=== PATIENT | female | born 1980 | race Caucasian/White ===

== ENCOUNTER 2016-10-05 08:09 | Inpatient (IN) | payer OTHER ==
[2016-10-05] VITALS (77 sets, daily range): BP systolic 79–128; BP diastolic 47–93; PULSE 57–107; RESP 16–18; TEMP 97.7–98.2; O2SAT 100
[~2016-10-05 08:09] MED LIST: IBUP600 PO; PERC5TAB12 PO; PRENTAB72 PO
[2016-10-05 10:34] LABS: AUTOMATED NEUTROPHIL # 6.9 TH/MM3 (1.8-7.7); BASOPHIL % 0.3 % (0.0-2.0); EOSINOPHIL # 0.1 TH/MM3 (0-0.4); EOSINOPHIL % 1.1 % (0.0-4.0); HEMATOCRIT 35.7 % (35.0-46.0); HEMO FLAGS DIFF FINAL; LYMPH % 14.5 % (9.0-44.0); LYMPHOCYTE # 1.3 TH/MM3 (1.0-4.8); MEAN CELL VOLUME 83.6 FL (80.0-100.0); MEAN CORPUSCULAR HGB CONC 35.9 % (32.0-36.0); MONO % 8.8 % (0.0-8.0); NEUT % 75.3 % (16.0-70.0); PLATELET COUNT 240 TH/MM3 (150-450); RED BLOOD COUNT 4.27 MIL/MM3 (4.00-5.30); RED CELL DISTRIBUTION WIDTH 14.7 % (11.6-17.2); WHITE BLOOD COUNT 9.2 TH/MM3 (4.0-11.0)
[2016-10-05] MEDS ORDERED: OXYTOCIN 30 UNITS/NS 500ML PREMIX IV SCH (10:45)
[2016-10-05] MEDS ORDERED: LACTATED RINGER'S 1000 ML INJ 1,000 ML IV PRN (10:57)
[2016-10-05] MEDS ORDERED: LACTATED RINGER'S 1000 ML INJ 1,000 ML IV SCH (10:57)
[2016-10-05] MEDS ORDERED: SODIUM CHLORID 0.9% 500 ML INJ 500 ML IV PRN (11:00)
[2016-10-05] MEDS ORDERED: LIDOCAINE HCL 1% 50 ML VIAL INFIL PRN (11:00)
[2016-10-05] MEDS ORDERED: ONDANSETRON HCL 4 MG/2 ML VIAL IV PRN (11:00)
[2016-10-05] MEDS ORDERED: CITRIC ACID-SODIUM CITRATE LIQ 30 ML UDC PO SCH (11:00)
[2016-10-05] MEDS ORDERED: MINERAL OIL 10 ML VIAL TOPICAL PRN (11:00)
[2016-10-05] MEDS ORDERED: LIDOCAINE HCL 1% 50 ML VIAL I-DERMAL PRN (11:00)
[2016-10-05] MEDS ORDERED: OXYTOCIN 30 UNITS-500ML PREMIX 500 ML IV ONE ×2 (11:00→20:00)
--- NOTE | 2016-10-05 11:05 | PD.LABORPN ---
Subjective Subjective pt comfortable Objective Objective Pelvic Exam: Cervix: [-] 3 Dilatation: [-] Effacement: [-] 70 Station: [-] -2 Presentation: [-] vtx Membranes: [intact or ruptured] AROM clear Uterine Contractions: [-] FHT's: Category: [-] 1 Baseline: [-] 140s Reactive: [-] + Variability: [-] Decels: [-] Assessment/Plan Problem List: (1) Plan: start pit epidural Emery Aquino MD Oct 05, 2016 11:05
[2016-10-05] MEDS ORDERED: SODIUM CHLOR 0.9% 1000 ML INJ 1,000 ML IV PRN (11:17)
--- NOTE | 2016-10-05 11:50 | MH ---
cc: EMERY DA SILVA DATE OF ADMISSION: 10/05/2016 DATE OF : 1980 HISTORY OF PRESENT ILLNESS The patient is a 36-year-old 2, para 1-0-0-1, who presents at 40 and 2/7 weeks for elective induction of labor. PAST MEDICAL HISTORY The patient's past medical history is negative. PAST SURGICAL HISTORY The patient has had wisdom teeth extraction. OBSTETRICAL HISTORY She has had one prior with vaginal delivery and that was complicated by preeclampsia. GYNECOLOGIC HISTORY No history of STDs. She did have an abnormal Pap smear in 2016 that was ASCUS. Her follow up Pap smear was negative. FAMILY HISTORY Family history is noncontributory. SOCIAL HISTORY Social history is negative for cigarettes, alcohol and street drugs. The patient is and works at [employer]. PHYSICAL EXAMINATION VITAL SIGNS: She is afebrile. Her weight is 128. Her blood pressure is 98/60. Her pulse is 82. GENERAL: In general she is in no acute distress. HEART: Regular rate and rhythm. LUNGS: Clear to auscultation bilaterally. ABDOMEN: Gravid, nontender. LOWER EXTREMITIES: Nontender, non edematous. CERVICAL: On cervical exam she is 3/70/-2. AROM was attempted with scant fluid returned. Emery Da Silva MD TEG/TLL /11:26 AM /11:39 AM MTDReed
[2016-10-05 12:03] LABS: BLOOD, URINE SMALL (NEG); COMMENT (UR) CULT NOT INDICATED; CULTURE IF INDICATED CULT NOT INDICATED; GLUCOSE,URINE NEG (NEG); KETONE, URINE NEG (NEG); NITRITE,URINE NEG (NEG); PH, URINE 7.5 (5.0-8.5); SQUAMOUS EPITHELIAL CELL URINE <1 /hpf (0-5); URINE COLOR LIGHT-YELLOW (YELLW/STRAW)
[2016-10-05] MEDS ORDERED: DIPHTH/TETANUS/ACEL PERTUSSIS (BOOSTER) 0.5 ML VIAL/PFS IM ONE (16:00)
[2016-10-05] MEDS ORDERED: MEASLES, MUMPS, RUBELLA VACCINE 0.5 ML VIAL SQ ONE (16:00)
[2016-10-05] MEDS ORDERED: WITCH HAZEL 50%/GLYCERIN 12.5% 40 PAD JAR TOPICAL PRN (20:00)
[2016-10-05] MEDS ORDERED: OXYTOCIN 10 UNIT/ML AMP XX PRN (20:00)
[2016-10-05] MEDS ORDERED: ACETAMINOPHEN 325 MG TAB PO PRN (20:00)
[2016-10-05] MEDS ORDERED: oxyCODONE/ACETAMINOPHEN 5 MG/325 MG TAB PO PRN ×2 (20:00)
[2016-10-05] MEDS ORDERED: SODIUM CHLORIDE 0.9% FLUSH 10 ML FLUSH IV FLUSH PRN (20:00)
[2016-10-05] MEDS ORDERED: DOCUSATE SODIUM 50 MG/SENNA 8.6 MG TAB PO PRN (20:00)
[2016-10-05] MEDS ORDERED: ONDANSETRON ODT 4 MG TAB PO PRN (20:00)
[2016-10-05] MEDS ORDERED: BENZOCAINE 20% TOPICAL SPRAY 60 ML CAN TOPICAL PRN (20:00)
[2016-10-05] MEDS ORDERED: ALUMINUM/MAGNESIUM/SIMETH 30 ML CUP PO PRN (20:00)
--- NOTE | 2016-10-05 20:05 | PD.OB.DELI ---
Delivery Date: Oct 05, 2016 Anesthesia: Epidural Episiotomy: None Vaginal Delivery: Normal Presentation: Occiput anterior Nuchal Cord: x1 Delayed cord clamping (45 sec): Yes Infant: Male, Single One Minute : 9 Five Minute : 9 Weight: 7-9 Infant Care: Suctioned, Spontaneous crying, Responded to stimulation Placenta: Spontaneous delivery, Intact, 3 vessel cord Laceration: No lacerations Emery Wynne MD Oct 05, 2016 20:05
[2016-10-05] MEDS: IBUPROFEN 600 MG TAB PO PRN (20:25)
[2016-10-05] MEDS ORDERED: ZOLPIDEM TARTRATE 5 MG TAB PO PRN (21:00)
[2016-10-05] MEDS ORDERED: SODIUM CHLORIDE 0.9% FLUSH 10 ML FLUSH IV FLUSH SCH (21:00)
[2016-10-06] MEDS: IBUPROFEN 600 MG TAB PO PRN ×2 (07:17→14:11)
[2016-10-06 07:20] VITALS: BP 118/74; PULSE 60; RESP 16; TEMP 97.9
[2016-10-06] MEDS ORDERED: IBUP-232 PO (08:42)
[2016-10-06] MEDS ORDERED: OXYC1TAB63 PO (08:42)
--- NOTE | 2016-10-06 08:43 | HHI.DCPOC ---
Discharge Care Plan Diagnosis: (1) Spontaneous vaginal delivery Your Health Problems Are: Vaginal delivery Report Symptoms to Your Doctor -Temperate above 100.5 degrees -Redness, of incision or excessive or foul smelling drainage -Unusual pain or calf pain -Increased vaginal bleeding -Painful or difficulty urinating -Feelings of extreme sadness or anxiety after 2 weeks Goals to Promote Your Health * To prevent worsening of your condition and complications * To maintain your health at the optimal level Directions to Meet Your Goals Take your medications as prescribed Follow your dietary instruction Follow activity as directed Ensure plenty of rest for recovery Drink fluids for hydration Keep your appointments as scheduled Take your immunizations and boosters as scheduled If your symptoms worsen call your PCP, if no PCP go to Urgent Care Center or Emergency Room Smoking is Dangerous to Your Health. Avoid second hand smoke Call the 24-hour crisis hotline for domestic abuse at Emery Wynne MD Oct 06, 2016 08:43
--- NOTE | 2016-10-06 08:46 | HHI.OB ---
Subjective Post Day: 1 Remarks pain controlled, mod lochia, adeel po, +void/flatus, pt wants to go home today if baby can go home. Objective Vitals/I&O Vital Signs Date Time Temp Pulse Resp B/P Pulse Ox O2 Delivery O2 Flow Rate FiO2 10/06/16 07:20 60 118/74 10/06/16 07:20 97.9 16 10/05/16 22:00 97.9 10/05/16 22:00 63 18 107/70 10/05/16 21:20 98.2 18 10/05/16 21:15 73 117/75 10/05/16 21:00 77 121/70 10/05/16 20:50 18 10/05/16 20:45 78 127/74 10/05/16 20:35 87 121/79 10/05/16 20:30 80 119/71 10/05/16 20:22 18 10/05/16 20:15 90 113/69 10/05/16 20:12 18 10/05/16 20:01 106 127/74 10/05/16 19:51 84 116/75 10/05/16 19:50 18 10/05/16 19:45 95 18 126/93 10/05/16 19:31 82 109/61 10/05/16 19:16 83 128/81 10/05/16 19:00 72 122/76 10/05/16 18:49 18 10/05/16 18:45 67 122/70 10/05/16 18:32 69 112/72 10/05/16 18:15 72 124/62 10/05/16 18:01 69 106/68 10/05/16 18:00 98.0 10/05/16 17:59 18 10/05/16 17:45 62 107/65 10/05/16 17:31 64 100/67 10/05/16 17:30 18 10/05/16 17:18 59 124/76 10/05/16 17:15 58 118/72 10/05/16 17:01 66 111/66 10/05/16 16:46 59 119/71 10/05/16 16:31 74 116/52 10/05/16 16:24 18 10/05/16 16:16 58 112/65 10/05/16 16:00 59 114/73 10/05/16 15:46 59 110/71 10/05/16 15:31 64 123/74 10/05/16 15:29 97.7 10/05/16 15:22 64 114/73 10/05/16 15:15 59 107/64 10/05/16 15:13 16 10/05/16 15:01 66 102/60 10/05/16 14:45 61 93/53 10/05/16 14:29 107 79/61 10/05/16 14:29 60 101/59 10/05/16 14:17 18 10/05/16 14:16 63 102/64 10/05/16 14:16 60 98/57 10/05/16 14:01 65 114/70 10/05/16 13:55 63 112/70 10/05/16 13:50 60 105/67 10/05/16 13:45 64 98/54 10/05/16 13:41 78 106/62 10/05/16 13:37 58 95/47 10/05/16 13:35 57 92/52 10/05/16 13:34 60 97/51 10/05/16 13:32 60 91/52 10/05/16 13:31 58 93/48 10/05/16 13:30 63 97/58 10/05/16 13:29 75 96/52 10/05/16 13:27 18 10/05/16 13:26 98.2 10/05/16 13:25 67 116/69 10/05/16 13:21 67 114/76 10/05/16 13:20 100 10/05/16 13:20 68 10/05/16 13:20 64 112/67 10/05/16 13:16 78 117/66 10/05/16 13:15 69 10/05/16 13:15 100 10/05/16 13:11 66 125/68 10/05/16 13:10 68 10/05/16 13:10 100 10/05/16 13:09 66 123/80 10/05/16 13:06 64 10/05/16 13:06 104/76 10/05/16 13:05 100 10/05/16 13:05 64 10/05/16 13:01 70 120/51 10/05/16 13:00 66 10/05/16 13:00 100 10/05/16 12:55 67 10/05/16 12:52 18 10/05/16 12:52 65 117/72 10/05/16 11:38 18 10/05/16 11:36 71 124/75 Objective Remarks GENERAL: Well-nourished, well-developed patient. CARDIOVASCULAR: Regular rate and rhythm without murmurs, gallops, or rubs. RESPIRATORY: Breath sounds equal bilaterally. No accessory muscle use. ABDOMEN/GI: Abdomen soft, non-tender. Fundus: Firm, non-tender at umbilicus. GENITOURINARY: Light to moderate bleeding. EXTREMITIES: No cyanosis or edema, non-tender, without signs of DVT. Medications and IVs Current Medications Medications (Trade) Dose Ordered Sig/Francisca Route Start Time Stop Time Status Last Admin Oxytocin 500 ml @ 0 mls/hr TITRATE IV 10/05/16 10:45 10/05/16 10:55 Lactated Ringer's 1,000 ml @ 125 mls/hr Q8H IV 10/05/16 10:57 Lactated Ringer's 1,000 ml @ 3,000 mls/hr Q20M PRN IV 10/05/16 10:57 (NS 1000 ml Inj) 1,000 ml @ 100 mls/hr Q10H PRN IV 10/05/16 11:17 (Zofran Inj) 4 mg Q6H PRN IV 10/05/16 11:00 (fentaNYL INJ) 50 mcg Q1H PRN IV PUSH 10/05/16 11:00 (fentaNYL INJ) 100 mcg Q1H PRN IV PUSH 10/05/16 11:00 (Muri-Lube Oil) 10 ml UNSCH PRN TOPICAL 10/05/16 11:00 (NS Flush) 2 ml BID IV FLUSH 10/05/16 21:00 (NS Flush) 2 ml UNSCH PRN IV FLUSH 10/05/16 20:00 (Tylenol) 650 mg Q4H PRN PO 10/05/16 20:00 (Motrin) 600 mg Q6H PRN PO 10/05/16 20:00 10/06/16 07:17 (Percocet 5-325 Mg) 1 tab Q4H PRN PO 10/05/16 20:00 (Percocet 5-325 Mg) 2 tab Q4H PRN PO 10/05/16 20:00 (Americaine 20% Top Spr) 1 spray Q4H PRN TOPICAL 10/05/16 20:00 (Tucks Pads) 1 applic QID PRN TOPICAL 10/05/16 20:00 (Kathrin-Colace) 2 tab Q12H PRN PO 10/05/16 20:00 10/06/16 07:17 (Ambien) 5 mg HS PRN PO 10/05/16 21:00 (Mag-Al Plus Susp Liq) 15 ml Q8H PRN PO 10/05/16 20:00 (Zofran Odt) 4 mg Q6H PRN PO 10/05/16 20:00 Assessment/Plan Problem List: (1) Spontaneous vaginal delivery Plan: routine pp care Emery Wynne MD Oct 06, 2016 08:46
[2016-10-06 20:00] VITALS: BP 113/69; PULSE 65; RESP 18; TEMP 97.8
== END 2016-10-06 21:12 | disposition home or self-care (01) | DRG 775 ==
LOC: H2EA 08:09 → H1EA 21:44
PROVIDERS: ADMIT Obstetrics & Gynecology; ATTEND Obstetrics & Gynecology
PROC: 10E0XZZ Delivery of Products of Conception, External Approach (ICD-10-PCS; principal; 2016-10-05)
PROC: 3E033VJ Introduction of Other Hormone into Peripheral Vein, Percutaneous Approach (ICD-10-PCS; 2016-10-05)
PROC: 00HU33Z Insertion of Infusion Device into Spinal Canal, Percutaneous Approach (ICD-10-PCS; 2016-10-05)
PROC: 3E0R3CZ (ICD-10-PCS; 2016-10-05)
DX: O69.81X0 Labor and delivery complicated by cord around neck, without compression, not applicable or unspecified (principal); O09.513 Supervision of elderly primigravida, third trimester; Z37.0 Single live birth; Z3A.40 40 weeks gestation of pregnancy
CPT/HCPCS: 59025; 81001; 85025; 86900; 86901; J2590